=== PATIENT | female | born 1995 | race Caucasian/White ===

== ENCOUNTER 2024-07-07 04:12 | Emergency (ER) | payer MEDICAID ==
[~2024-07-07] VITALS: Ht 152.4 cm; Wt 50.0 kg
[2024-07-07] MEDS ORDERED: CLIN300C54 PO (04:51)
[2024-07-07 05:15] VITALS: BP 128/87; PULSE 78; RESP 15; TEMP 98; O2SAT 100
== END 2024-07-07 05:16 | disposition home or self-care (01) ==
LOC: ER 04:13
DX: L03.116 Cellulitis of left lower limb (principal)
CPT/HCPCS: 99283